=== PATIENT | female | born 1985 | race Caucasian/White ===

== ENCOUNTER 2016-11-16 10:59 | Emergency (ER) | payer OTHER ==
--- NOTE | 2016-11-16 12:03 | ED ---
URI HPI - General Chief Complaint: Upper Respiratory Infection Stated Complaint: URI Time Seen by Provider: 11/16/16 11:45 Source: patient, RN notes reviewed Mode of arrival: ambulatory Limitations: no limitations - History of Present Illness Initial Comments: This a 31-year-old female presents emergency Department chief complaint URI symptoms. Patient states she's had cough and congestion over the last 2-3 days. Patient states she primary has sinus congestion. Patient denies any known fever or chills. She is concerned as one of her coworkers deficits next her was diagnosed with strep pharyngitis. Patient states she has a mild sore throat. Patient denies any shortness of breath, chest pain. Denies any nausea vomiting diarrhea. Patient states that her daughter is sick with similar symptoms. - Related Data Home Medications Medication Instructions Recorded Confirmed guaiFENesin [Mucinex] 600 mg PO ONCE PRN 11/16/16 11/16/16 Allergies Allergy/AdvReac Type Severity Reaction Status Date / Time No Known Allergies Allergy Verified 11/16/16 11:44 Review of Systems ROS Statement: Those systems with pertinent positive or pertinent negative responses have been documented in the HPI. ROS Other: All systems not noted in ROS Statement are negative. Past Medical History Past Medical History: No Reported History History of Any Multi-Drug Resistant Organisms: None Reported Past Surgical History: No Surgical Hx Reported Past Psychological History: No Psychological Hx Reported Smoking Status: Never smoker Past Alcohol Use History: None Reported Past Drug Use History: None Reported General Exam Limitations: no limitations General appearance: alert, in no apparent distress Head exam: Present: atraumatic, normocephalic, normal inspection Eye exam: Present: normal appearance, PERRL, EOMI. Absent: scleral icterus, conjunctival injection, periorbital swelling ENT exam: Present: mucous membranes moist, TM's normal bilaterally, normal external ear exam. Absent: normal exam, normal oropharynx (Mild erythema with exudates posterior pharynx) Neck exam: Present: normal inspection, full ROM. Absent: tenderness, meningismus, lymphadenopathy Respiratory exam: Present: normal lung sounds bilaterally. Absent: respiratory distress, wheezes, rales, rhonchi, stridor Cardiovascular Exam: Present: regular rate, normal rhythm, normal heart sounds. Absent: systolic murmur, diastolic murmur, rubs, gallop, clicks Skin exam: Present: warm, dry, intact, normal color. Absent: rash Course Vital Signs 11/16/16 11:26 Temperature 97.9 F Pulse Rate 95 Respiratory 18 Rate Blood Pressure 171/92 O2 Sat by Pulse 94 L Oximetry Medical Decision Making - Medical Decision Making 31-year-old female comes in the emergency department for not feeling well. Patient has a viral URI strep is negative. Patient has no signs of actual infection at this time. Return parameters were discussed. - Lab Data Lab Results 11/16/16 Range/Units 12:27 Group A Strep Rapid Negative (Negative) Disposition Clinical Impression: Upper respiratory infection Disposition: HOME SELF-CARE Condition: Stable Instructions: Upper Respiratory Infection (ED) Additional Instructions: Please return to the Emergency Department if symptoms worsen or any other concerns. Referrals: Dayne Wolff MD [Primary Care Provider] - 1-2 days Time of Disposition: 13:19
[2016-11-16 13:36] VITALS: BP 159/96; PULSE 87; RESP 16; TEMP 97.8
== END 2016-11-16 13:47 | disposition home or self-care (01) ==
LOC: EC 10:59
DX: J06.9 Acute upper respiratory infection, unspecified (principal)
CPT/HCPCS: 87081; 87430; 99283